=== PATIENT | female | born 1990 | race African-American/Black ===

== ENCOUNTER 2023-02-21 11:29 | Outpatient (REF) | payer MEDICAID, SELFPAY ==
[2023-02-21 14:55] LABS: Hematocrit 49.9 % (37.0-47.0); Hemoglobin 16.6 g/dl (12.0-16.0)
[2023-02-21 15:08] LABS: Alanine Aminotransferase 32 U/L (0-31); Aspartate Amino Transferase 26 U/L (5-31)
[2023-02-25 14:57] LABS: Testosterone, Total 624 ng/dL (2-45)
== END 2023-02-21 11:30 | disposition home or self-care (01) ==
LOC: HO.CHCLDS 11:29
PROVIDERS: Visit Provider Advanced Practice Midwife
DX: F64.9 Gender identity disorder, unspecified (principal); R74.01 Elevation of levels of liver transaminase levels
CPT/HCPCS: 36415; 84403; 84450; 84460; 85014; 85018

== ENCOUNTER 2023-03-21 18:02 | Outpatient (REF) | payer MEDICAID, SELFPAY ==
[2023-03-24 21:59] LABS: HPV mRNA E6/E7 rflx Not Detected (Not Detected)
== END 2023-03-21 18:03 | disposition home or self-care (01) ==
LOC: HO.HHCLNP 18:02
PROVIDERS: PCP Advanced Practice Midwife; Visit Provider Advanced Practice Midwife
DX: Z01.419 Encounter for gynecological examination (general) (routine) without abnormal findings (principal)
CPT/HCPCS: 87624; 88142

== ENCOUNTER 2024-02-26 11:05 | Outpatient (REF) | payer MEDICAID, SELFPAY ==
[2024-02-26 14:30] LABS: Estimated Average Glucose 105 mg/dL; Hemoglobin A1c % 5.3 % (<6.0)
[2024-02-26 14:37] LABS: Alanine Aminotransferase 36 U/L (0-31); Albumin Level 4.2 g/dL (3.5-5.0); Alkaline Phosphatase 63 U/L (39-117); Anion Gap 14 (12-20); Aspartate Amino Transferase 20 U/L (5-31); Bilirubin Total 0.4 mg/dL (0.0-1.0); Blood Urea Nitrogen 12 mg/dL (9-16); Carbon Dioxide 28 mmol/L (22-29); Chloride 103 mmol/L (96-108); Cholesterol 158 mg/dL (<200); Estimated Glomerular Filt Rate > 60; Glucose Random 87 mg/dL (60-115); HDL Cholesterol 49 mg/dL (>40); LDL Cholesterol Calculated 82 mg/dL (<100); Potassium 4.1 mmol/L (3.3-5.1); Sodium 141 mmol/L (135-145); Total Protein 7.7 g/dL (6.5-8.0); Triglycerides 137 mg/dL (<150)
[2024-02-26 14:49] LABS: Creatinine Urine 93.71 mg/dL; Microalbum/Creatinine Ratio Ur 10.6 ug/mg cr (<30)
[2024-02-26 18:41] LABS: CT PCR NOT DETECTED (Not Detect.); NG PCR NOT DETECTED (Not Detect.)
[2024-02-27 08:20] LABS: HBS Num1 89.76 mIU/mL (0-7.99); HBc Num1 0.13 S/CO (0.00-0.79); HBsAGNum1 0.45 S/CO (0.00-0.99); HIV AB/AG Nonreactive (Nonreactive); HIV Num 1 0.06 S/CO (0.00-0.99); Hepatitis B Core Antibody Nonreactive (Nonreactive); Hepatitis B Surface Antigen Negative (Negative); ~HepC Num1 0.11 S/CO (0.00-0.79); ~Hepatitis B Surface Antibody REACTIVE (Nonreactive); ~Hepatitis C Antibody Nonreactive (Nonreactive)
[2024-02-27 09:33] LABS: RPR Rapid Plasma Reagin NON-REACTIVE (NON-REACTIVE)
== END 2024-02-26 11:06 | disposition home or self-care (01) ==
LOC: HO.CHCLDS 11:05
PROVIDERS: Visit Provider Nurse Practitioner
DX: Z11.4 Encounter for screening for human immunodeficiency virus [HIV] (principal); Z11.3 Encounter for screening for infections with a predominantly sexual mode of transmission; E66.01 Morbid (severe) obesity due to excess calories; Z68.41 Body mass index [BMI] 40.0-44.9, adult
CPT/HCPCS: 36415; 80053; 80061; 82043; 82570; 83036; 86592; 86704; 86706; 86803; 87340; 87389; 87491; 87591

== ENCOUNTER 2024-03-15 15:21 | Outpatient (REF) | payer MEDICAID, SELFPAY ==
[2024-03-15 16:18] LABS: Hematocrit 46.4 % (37.0-47.0); Hemoglobin 15.7 g/dl (12.0-16.0)
[2024-03-21 12:49] LABS: Testosterone, Total 750 ng/dL (2-45)
== END 2024-03-15 15:22 | disposition home or self-care (01) ==
LOC: HO.HHCL 15:21
PROVIDERS: Visit Provider Advanced Practice Midwife
DX: F64.9 Gender identity disorder, unspecified (principal)
CPT/HCPCS: 36415; 84403; 85014; 85018

== ENCOUNTER 2024-07-22 15:01 | Outpatient (REF) | payer MEDICAID, SELFPAY ==
[2024-07-22 16:22] LABS: Basophils Percent Auto 0.6 % (0-2); Eosinophils Absolute Auto 0.1 X10*3/uL (0.0-0.4); Eosinophils Percent Auto 1.4 % (0-4); Hematocrit 46.7 % (37.0-47.0); Hemoglobin 15.9 g/dl (12.0-16.0); Imm Gran Abs Auto 0.01 X10*3/uL (0.00-0.03); Imm Gran Pct Auto 0.2 % (0.0-0.4); Lymphocytes Absolute Auto 1.9 X10*3/uL (1.2-4.9); Lymphocytes Percent Auto 37.7 % (20-40); MANUAL DIFF FLAG SCAN; Mean Corpuscular Hemoglobin 27.7 pg (27.0-33.0); Mean Corpuscular Volume 81.5 fL (80.0-98.0); Mean Platelet Volume 11.4 fL (9.4-12.3); Monocytes Absolute Auto 0.5 X10*3/uL (0.1-1.2); Monocytes Percent Auto 9.1 % (2-11); Neutrophils Absolute Auto 2.6 x10*3/uL (2.0-8.3); Platelet Count 258 X10*3/uL (160-400); Red Blood Count 5.73 X10*6/uL (4.20-5.50); SCAN SMEAR FLAG 1; White Blood Count 5.1 X10*3/uL (4.8-10.8)
[2024-07-22 17:10] LABS: SLIDE REVIEW VERIFIED
[2024-07-27 09:14] LABS: Testosterone, Total 508 ng/dL (2-45)
== END 2024-07-22 15:02 | disposition home or self-care (01) ==
LOC: HO.HHCL 15:01
PROVIDERS: Advanced Practice Midwife; Visit Provider Internal Medicine
DX: F64.9 Gender identity disorder, unspecified (principal); R05.1 Acute cough
CPT/HCPCS: 36415; 84403; 85025

== ENCOUNTER 2025-03-10 19:38 | Outpatient (REF) | payer SELFPAY ==
[2025-03-10 21:50] LABS: CT PCR NOT DETECTED (Not Detect.); NG PCR NOT DETECTED (Not Detect.)
== END 2025-03-10 19:39 | disposition home or self-care (01) ==
LOC: HO.HHCLNP 19:38
PROVIDERS: Visit Provider Advanced Practice Midwife
DX: Z11.3 Encounter for screening for infections with a predominantly sexual mode of transmission (principal); Z11.8 Encounter for screening for other infectious and parasitic diseases
CPT/HCPCS: 87491; 87591; 87661

== ENCOUNTER 2025-03-13 13:01 | Outpatient (REF) | payer SELFPAY ==
--- OUTSIDE RECORDS SUMMARY | 2025-03-13 13:16 | XMS_ITS | Encounter Summary ---
Author Organization [facility] [employer] Address [address] [place] [address] [address] [place] [address] Care Team Providers Care [facility]osp[facility] Patient Care Secretary Name Role Phone Ian Benjamin MD Primary Care Prov ider Reason for Visit * Reason Onset Date Comments Med Refill 04/23/2024 Encounter Details Date Type Department Care Team (Late st Contact Info) Description 04/23/2024 Refill [facility] [address] [place] [address] [address] [place] [address] Gender dysphoria Social History Tobacco Use Types Packs/Day Years Used Date Smoking Tobacco: Every Day Cigarettes Passive Smoke Exposure: Never Smokeless Tobacco: Current Comments:Vapes 5mg Alcohol Use Standard Drinks/Week Comments Never 4 (1 standard drink = 0.6 oz pur e alcohol) Alcohol Answer Date Recorded How often do you have a drink containing alcohol ? 1 02/26/2024 How many drinks containing a lcohol do you have on a typical day when you are drinking? 1 02/26/2024 How often do you have six or more drinks on one occasion? 0 02/26/2024 Depression Answer Date Recorded Patient Health Questionnaire-9 Score 11 02/26/2024 Patient Health Questionnaire-9 Score 11 02/26/2024 Last PHQ-9: Questionnaire Data Not on file 0 02/26/2024 Housing Stability Answer Date Recorded What is your housing situation today? I have housing today, but I am worried about losing housing in the future 05/10/[address] you li ve. Do you have problems with any of the following? None of the above 05/10/2023 Food Insecurity Answer Date Recorded Within the past 12 months, y ou worried that your food would run out before you got money to buy more: Never True 05/10/2023 Within the past 12 months,th e food you bought just didn't last and you didn't have enough money to get more: Never True Transportation Answer Date Recorded In the past 12 months, has l ack of transportation kept you from medical appts, meetings, work or from getting things needed for daily living? No 05/10/2023 Utilities Answer Date Recorded In the past 12 months, has t he electric, gas, oil or water company threatened to shut off services in your home? No 05/10/2023 Depression Answer Date Recorded Patient Health Questionnaire-2 Score 0 02/26/2024 Comments No Sex and Gender Information Value Date Recorded Sex Assigned at Female 05/23/2022 10:28 AM EDT Legal Sex Female 10:28 AM EDT Gender Identity Transgender Male 05/11/2023 6:43 AM EDT Sexual Orientation Queer 05/11/2023 6: 43 AM EDT documented as of this encounter Plan of Treatment Not on file documented as of this encounter Visit Diagnoses Diagnosis Gender dysphoria documented in this encounter Additional Health Concerns Assessment Noted Time PHQ-9 Depression Total Score: 11 024 12:53 PM EDT documented as of this encounter Care Teams Hospice Patient Care Secretary Relationship Specialty Start Date End Date Ian Benjamin MD [address] [place] [id number] PCP - General Internal Medicine 05/02/19 documented as of this encounter
[2025-03-13 14:39] LABS: Hemoglobin A1C 153.9459 umol/L; Total Hemoglobin (HGBA1C) 4137.3759 umol/L
[2025-03-14 07:52] LABS: Syphilis Screen Nonreactive (Nonreactive)
[2025-03-14 08:06] LABS: HIV Num 1 0.05 S/CO (0.00-0.99); ~HepC Num1 0.20 S/CO (0.00-0.79); ~Hepatitis C Antibody Nonreactive (Nonreactive)
== END 2025-03-13 13:02 | disposition home or self-care (01) ==
LOC: HO.CHCLDS 13:01
PROVIDERS: Visit Provider Advanced Practice Midwife
DX: Z11.3 Encounter for screening for infections with a predominantly sexual mode of transmission (principal); Z83.3 Family history of diabetes mellitus; Z11.59 Encounter for screening for other viral diseases; Z01.84 Encounter for antibody response examination; Z11.4 Encounter for screening for human immunodeficiency virus [HIV]; Z13.1 Encounter for screening for diabetes mellitus
CPT/HCPCS: 36415; 83036; 86780; 86803; 87389

== ENCOUNTER 2025-05-19 09:57 | Outpatient (REF) | payer SELFPAY ==
[2025-05-19 15:11] LABS: Alanine Aminotransferase 41 U/L (0-31); Aspartate Amino Transferase 36 U/L (5-31); Cholesterol 128 mg/dL (<200); HDL Cholesterol 36 mg/dL (>40); Triglycerides 83 mg/dL (<150)
== END 2025-05-19 09:58 | disposition home or self-care (01) ==
LOC: HO.CHCLDS 09:57
PROVIDERS: Visit Provider Internal Medicine
DX: Z13.6 Encounter for screening for cardiovascular disorders (principal); F64.9 Gender identity disorder, unspecified
CPT/HCPCS: 36415; 80061; 84450; 84460